=== PATIENT | male | born 1990 | race African-American/Black ===

== ENCOUNTER 2016-10-28 06:40 | Emergency (ER) | payer OTHER ==
[~2016-10-28] VITALS: Ht 185.4 cm; Wt 96.3 kg
[2016-10-28 07:01] VITALS: BP 143/73
[2016-10-28 10:18] LABS: HBSG INDEX 0.19; HPCA INDEX 0.07
[2016-10-28 10:20] LABS: ANTI-HEPATITIS B CORE (IGM) Nonreactive; HBC IgM INDEX 0.06; HIV INDEX 0.05; HIV-1/2 AB/AG COMBO Nonreactive
[2016-10-28 10:36] LABS: ANTI-HIV (AIDS STAT TEST) ND
[2016-10-28 10:59] LABS: EOSINOPHIL (%) 0.4 % (0-5); HEMATOCRIT 47.5 % (38.0-50.0); IMMATURE GRANULOCYTE (%) 0.2 % (0.0-0.7); LYMPHOCYTE COUNT 1.4 K/uL (1.0-2.8); MCH 29.6 PG (29.0-34.0); MCHC 33.5 G/DL (30.0-36.0); MCV 88.3 FL (86-99); MEAN PLAT.VOLUME 10.8 uM^3 (9.0-12.4); MONOCYTE (%) 4.9 % (3-12); MONOCYTE COUNT 0.2 K/uL (0-0.8); NEUTROPHIL (%) 64.6 % (45-76); PLATELET COUNT 224 K/uL (156-360); RBC DIS.WIDTH-CV 11.6 % (11.8-14.6); RBC DIS.WIDTH-SD 37.2 % (39-53); RED BLOOD COUNT 5.38 M/uL (4.00-5.50); WHITE BLOOD COUNT 4.7 K/uL (4.1-10.2)
[2016-10-28] MEDS ORDERED: TRUVADA1 TABLET PO (11:29)
[2016-10-28] MEDS ORDERED: ISENTRESS400 MG PO (11:29)
[2016-10-28 11:50] LABS: ALKALINE PHOSPHATASE 50 IU/L (3-129); ANION GAP 10 MEQ/L (2-14); CHLORIDE 104 MEQ/L (99-109); DIRECT BILIRUBIN 0.3 mg/dL (0.0-0.3); GFR ESTIMATE (CALCULATED) > 59 mL/min/; GLUCOSE 84 mg/dL (70-99); SAMPLE HEMOLYSIS CHECK 0; SAMPLE ICTERIC CHECK 0; SAMPLE LIPEMIA CHECK 0; SODIUM 141 MEQ/L (136-147); TOTAL BILIRUBIN 1.6 MG/DL (0.0-1.0); UREA NITROGEN (BUN) 11 mg/dL (9-23)
[2016-10-29 13:24] LABS: CHLAMYDIA TRACHOMATIS NEGATIVE; NEISSERIA GONORRHOEAE NEGATIVE
[2016-10-30 14:19] LABS: TREPONEMA ANTIBODY NEGATIVE (NEGATIVE)
== END 2016-10-28 12:10 ==
LOC: EME 06:40 → EDBD 06:40 → EME 06:40
PROVIDERS: Emergency Medicine
DX: T76.21XA Adult sexual abuse, suspected, initial encounter (principal); Z77.21 Contact with and (suspected) exposure to potentially hazardous body fluids
CPT/HCPCS: 80048; 80076; 85025; 86703; 86705; 86780; 86803; 87340; 87491; 87591; 99281; 99283; J0696